=== PATIENT | female | born 1960 | race American Indian/Alaskan Native ===

== ENCOUNTER 2016-05-20 15:10 | Outpatient (CLI) | payer MEDICARE ==
--- NOTE | 2016-05-21 08:16 | XRay Report ---
KUB: 05/20/16 CLINICAL: Venous insufficiency. Status post vascular stents. FINDINGS: Normal bowel gas pattern with a large volume of stool throughout the colon. No distended bowel and no air-fluid levels. Surgical clips in the right upper quadrant. Bilateral iliac stent grafts. A right sacral neurostimulator. No mass or suspicious calcifications. The bones and soft tissues are normal. IMPRESSION: Normal abdomen status post bilateral iliac stent grafts.
== END 2016-05-20 15:11 | disposition home or self-care (01) ==
LOC: SPVIMAG 15:10
PROVIDERS: ATTEND Surgery Vascular Surgery
DX: I87.2 Venous insufficiency (chronic) (peripheral) (principal); Z95.828 Presence of other vascular implants and grafts
CPT/HCPCS: 74000